=== PATIENT | male | born 1995 | race Caucasian/White ===

== ENCOUNTER → 2024-12-09 11:33 | Outpatient (REF) | payer OTHER, SELFPAY | LOC: MRI 3T 11:33 | PROVIDERS: ATTENDING PHYSICIAN Orthopaedic Surgery Sports Medicine; FAMILY PHYSICIAN Nurse Practitioner Family | DX: S83.211A Bucket-handle tear of medial meniscus, current injury, right knee, initial encounter (principal); M25.561 Pain in right knee | CPT/HCPCS: 73721 ==

== ENCOUNTER → 2025-01-15 13:21 | Outpatient (REF) | payer OTHER, SELFPAY | LOC: RAD 13:21 | PROVIDERS: ATTENDING PHYSICIAN Orthopaedic Surgery Sports Medicine; FAMILY PHYSICIAN Nurse Practitioner Family | DX: S43.431A Superior glenoid labrum lesion of right shoulder, initial encounter (principal); M25.511 Pain in right shoulder | CPT/HCPCS: 23350; 73040; 73222 ==